=== PATIENT | male | born 1965 | race Two or more races ===

== ENCOUNTER → 2017-05-13 | Outpatient (CLI) | payer OTHER ==
--- NOTE | 2017-05-13 12:55 | RADRPT ---
EXAM DATE/TIME: 05/13/2017 11:35 [facility] COMPARISON: No previous studies available for comparison. INDICATIONS : no known injury pain in the posterior part of shoulder MEDICAL HISTORY : None. SURGICAL HISTORY : None. ENCOUNTER: Initial ACUITY: 3 weeks PAIN SCORE: 10/10 LOCATION: Left Shoulder FINDINGS: Multiple view examination of the left shoulder demonstrates no evidence of fracture or dislocation. The glenohumeral and acromioclavicular joints are maintained. There is normal range of motion betwee n internal and external rotation. Bony mineralization is normal. CONCLUSION: Negative for fracture or dislocation. Follow up in 7-10 days is suggested if symptoms persist. John Tapia MD FACR on May 13, 2017 at 12:53 Board Certified Radiologist. This report was verified electronically.
--- NOTE | 2017-05-13 12:56 | RADRPT ---
EXAM DATE/TIME: 05/13/2017 11:44 [facility] COMPARISON: No previous studies available for comparison. INDICATIONS : No known injury pain in entire knee MEDICAL HISTORY : None. SURGICAL HISTORY : None. ENCOUNTER: Initial ACUITY: 4 - 6 months PAIN SCORE: 10/10 LOCATION: Left Knee FINDINGS: Four view examination of the left knee demonstrates no evidence of fracture or dislocation. Bony min eralization is normal. The articular surfaces are intact. The suprapatellar soft tissues have a nor mal configuration. CONCLUSION: Negative for fracture or dislocation. Follow up in 7-10 days is suggested if symptoms persist. John Tapia MD FACR on May 13, 2017 at 12:53 Board Certified Radiologist. This report was verified electronically.
== END ==
LOC: HRAD 10:36
PROVIDERS: ATTEND Family Medicine
DX: M25.562 Pain in left knee (principal); M25.512 Pain in left shoulder
CPT/HCPCS: 73030; 73564

== ENCOUNTER → 2017-05-28 | Outpatient (CLI) | payer OTHER ==
--- NOTE | 2017-05-28 10:22 | RADRPT ---
EXAM DATE/TIME: 05/28/2017 09:48 [facility] COMPARISON: No previous studies available for comparison. INDICATIONS : Abnormal liver function tests. MEDICAL HISTORY : Abnormal liver function tests. SURGICAL HISTORY : None. ENCOUNTER: Initial ACUITY: 1 day PAIN SCORE: 3/10 LOCATION: Bilateral upper quadrant MEASUREMENTS: LIVER: 15.1 cm length COMMON DUCT: 5 mm RIGHT KIDNEY: 11.4 x 4.9 x 5.8 cm SPLEEN: 12.6 cm length FINDINGS: Ultrasound of the upper abdomen demonstrates increased echogenicity of the liver compatible with fatt y infiltration or hepatocellular disease. The spleen is unremarkable. The right kidney is unremarkabl e. Sludge is identified within the gallbladder. The pancreas demonstrates no evidence of mass and the re is no dilatation of the pancreatic duct. CONCLUSION: 1. Echogenic liver compatible with fatty infiltration or hepatocellular disease. Marlon Hernandez MD on May 28, 2017 at 10:19 Board Certified Radiologist. This report was verified electronically.
== END ==
LOC: HRAD 09:11
PROVIDERS: ATTEND Family Medicine
DX: R79.89 Other specified abnormal findings of blood chemistry (principal)
CPT/HCPCS: 76705

== ENCOUNTER 2017-09-05 21:08 | Emergency (ER) | payer OTHER ==
[~2017-09-05] VITALS: Ht 167.6 cm; Wt 75.0 kg
[2017-09-05 21:09] VITALS: BP 119/74; PULSE 87; RESP 16; TEMP 99.2; O2SAT 98
[2017-09-05] MEDS ORDERED: IOHEXOL 350 MG/ML 10 ML VIAL (for RAD DIAG) IVCONTRAST ONE (21:09)
[2017-09-05] MEDS ORDERED: ONDANSETRON HCL 4 MG/2 ML VIAL IV PUSH ONE (22:00)
[2017-09-05] MEDS ORDERED: SODIUM CHLOR 0.9% 1000 ML INJ 1,000 ML IV ONE (22:00)
--- NOTE | 2017-09-05 22:11 | PD ---
HPI Chief Complaint: Fall Time Seen by Provider: 21:36 Travel History International Travel<30 days: No Contact w/Intl Traveler<30days: No Traveled to known affect area: No History of Present Illness HPI 52-year-old male presents to emergency department accompanied by family member for evaluation of a fall from a ladder 12 feet onto the pavement approximately 1:30 this afternoon at work. Patient states that he lost his balance falling back striking his right hip and right elbow and hand. He denies hitting his head. No neck or upper back pain. He does complain about some pain across his chest. He has some mild abdominal discomfort. Also complains of pain in the lower lumbar spine into the right hip. He denies any numbness, tingling or focal weakness. Pain is moderate PFSH Past Medical History Narrative Medical Chronic skin condition, right maxillary fracture Immunizations Current: Yes Tetanus Vaccination: > 5 Years Influenza Vaccination: No Past Surgical History Narrative Surgical ORIF right maxillary fracture Social History Alcohol Use: Yes (occ) Tobacco Use: Yes (occ) Substance Use: No Allergies-Medications (Allergen,Severity, Reaction): Coded Allergies: No Known Allergies (Unverified , 09/05/17) Reported Meds & Prescriptions Reported Meds & Active Scripts Active Flexeril (Cyclobenzaprine HCl) 10 Mg Tab 10 Mg PO TID Diclofenac Sodium DR (Diclofenac Sodium) 75 Mg Tabdr 75 Mg PO BID [place] (Hydrocodone-Acetaminophen) 5 Mg-325 Mg Tab 1 Tab PO Q4H PRN Review of Systems General / Constitutional: No: Fever Eyes: No: Visual changes HENT: No: Headaches, Neck Stiffness, Neck Pain Cardiovascular: No: Chest Pain or Discomfort Respiratory: No: Shortness of Breath Gastrointestinal: Positive: Abdominal Pain, No: Nausea, Vomiting Genitourinary: No: Dysuria, Hematuria Musculoskeletal: Positive: Myalgias, Arthralgias, Limited ROM, Pain Skin: Positive Rash, Positive Itching, Positive Lesions Neurologic: No: Weakness, Dizziness, Syncope, Focal Abnormalities, Headache, Paresthesia, Incontinence, Seizures Psychiatric: No: Depression Endocrine: No: Polydipsia Hematologic/Lymphatic: No: Easy Bruising Physical Exam Narrative GENERAL: Well-developed, well-nourished in no apparent distress. Nontoxic appearing. HEAD: Normocephalic, atraumatic. EYES: Pupils equal round and reactive. Extraocular motions intact. No scleral icterus. No injection or drainage. ENT: Nose clear. Throat without erythema, tonsillar hypertrophy or exudate. Uvula midline. Airway patent. NECK: Trachea midline. Supple, nontender, moves head freely. No central bony tenderness or spasm. CARDIOVASCULAR: Regular rate and rhythm without murmurs, gallops, or rubs. RESPIRATORY: Clear to auscultation. Breath sounds equal bilaterally. No wheezes , rales, or rhonchi. GASTROINTESTINAL: Abdomen soft, mild tenderness in the right upper quadrant as well as the right lower quadrant to deep palpation, nondistended. No hepato- splenomegaly, or palpable masses. No guarding. EXTREMITIES: Examination of the left upper extremity is unremarkable. Examination the right upper extremity reveals an abrasion and tenderness in the elbow, tenderness, swelling and ecchymosis to the volar palm and justen. He has some mild tenderness in the wrist but no focal tenderness. No snuffbox tenderness. No pain in the shoulder clavicle. The right lower extremity reveals pain in the right buttocks and SI joint region. No pain in the greater trochanter. No pain in the knee, ankle or foot. The left lower extremity is unremarkable. He has intact sensation with good distal pulses. BACK: Lower lumbar tenderness more so on the right. There is some soft tissue swelling. Without deformity. No flank tenderness. NEUROLOGICAL: Awake, alert and oriented x 3 .Cranial nerves grossly intact. Motor and sensory grossly within normal limits. Normal speech. Skin: Patient has abrasion over the right elbow. The patient is multiple plaques slight scaly lesions about the body consistent with what appears to be psoriasis. Data Data Last Documented VS Vital Signs Date Time Temp Pulse Resp B/P (MAP) Pulse Ox O2 Delivery O2 Flow Rate FiO2 09/05/17 21:09 99.2 87 16 119/74 (89) 98 Room Air Orders Orders Complete Blood Count With Diff (09/05/17 21:47) Comprehensive Metabolic Panel (09/05/17 21:47) Prothrombin Time / Inr (Pt) (09/05/17 21:47) Act Partial Throm Time (Ptt) (09/05/17 21:47) Lipase (09/05/17 21:47) Ua Includes Microscopic (09/05/17 21:47) Chest, Single Ap (09/05/17 21:47) Ct Abd/Pel W Iv Contrast(Rout) (09/05/17 21:47) Pelvis, Ap Only (Routine) (09/05/17 21:47) Iv Access Insert/Monitor (09/05/17 21:47) Ecg Monitoring (09/05/17 21:47) Oximetry (09/05/17 21:47) Sodium Chlor 0.9% 1000 Ml Inj (Ns 1000 M (09/05/17 22:00) Ondansetron Inj (Zofran Inj) (09/05/17 22:00) Fentanyl Inj (Fentanyl Inj) (09/05/17 22:00) Elbow, Complete (4 Vws) (09/05/17 21:47) Hand, Complete ([id number]) (09/05/17 21:47) Ct Lumb Spine W Iv Contrast (09/05/17 21:47) Iohexol 350 Inj (Omnipaque 350 Inj) (09/05/17 21:09) Acetamin-Hydrocod 325-5 Mg ([place] 5-325 (09/06/17 01:30) Naproxen (Naprosyn) (09/06/17 01:30) Labs Laboratory Tests Test 09/05/17 22:45 09/05/17 22:50 Urine Color YELLOW Urine Turbidity CLEAR Urine pH 6.5 Urine Specific [place] 1.023 Urine Protein NEG mg/dL Urine Glucose (UA) 1000 mg/dL Urine Ketones NEG mg/dL Urine Occult Blood NEG Urine Nitrite NEG Urine Bilirubin NEG Urine Urobilinogen LESS THAN 2.0 MG/DL Urine Leukocyte Esterase NEG Urine RBC 1 /hpf Urine WBC 2 /hpf Urine Mucus FEW /lpf White Blood Count 10.3 TH/MM3 Red Blood Count 4.70 MIL/MM3 Hemoglobin 14.3 GM/DL Hematocrit 42.4 % Mean Corpuscular Volume 90.1 FL Mean Corpuscular Hemoglobin 30.5 PG Mean Corpuscular Hemoglobin Concent 33.8 % Red Cell Distribution Width 13.1 % Platelet Count 123 TH/MM3 Mean Platelet Volume 9.9 FL Neutrophils (%) (Auto) 64.5 % Lymphocytes (%) (Auto) 17.3 % Monocytes (%) (Auto) 16.4 % Eosinophils (%) (Auto) 1.2 % Basophils (%) (Auto) 0.6 % Neutrophils # (Auto) 6.7 TH/MM3 Lymphocytes # (Auto) 1.8 TH/MM3 Monocytes # (Auto) 1.7 TH/MM3 Eosinophils # (Auto) 0.1 TH/MM3 Basophils # (Auto) 0.1 TH/MM3 CBC Comment DIFF FINAL Differential Comment Prothrombin Time 11.3 SEC Prothromb Time International Ratio 1.1 RATIO Activated Partial Thromboplast Time 25.0 SEC Blood Urea Nitrogen 12 MG/DL Creatinine 0.83 MG/DL Random Glucose 145 MG/DL Total Protein 7.5 GM/DL Albumin 3.6 GM/DL Calcium Level 8.8 MG/DL Alkaline Phosphatase 94 U/L Aspartate Amino Transf (AST/SGOT) 96 U/L Alanine Aminotransferase (ALT/SGPT) 117 U/L Total Bilirubin 0.5 MG/DL Sodium Level 141 MEQ/L Potassium Level 3.8 MEQ/L Chloride Level 105 MEQ/L Carbon Dioxide Level 30.7 MEQ/L Anion Gap 5 MEQ/L Estimat Glomerular Filtration Rate 97 ML/MIN Lipase 162 U/L [facility] Medical Decision Making Medical Screen Exam Complete: Yes Emergency Medical Condition: Yes Medical Record Reviewed: Yes Interpretation(s) CT lumbar spine: Negative for acute fracture. CT abdomen and pelvis: Negative for acute and intra-abdominal process/trauma incidental what appears to be a hemangioma noted in the liver. Last 24 hours Impressions Pelvis X-Ray 09/05/172146 Signed Impressions: Service Date/Time: Tuesday, September 05, 2017 22:10 - CONCLUSION: No acute fracture. Bib Donovan MD Hand X-Ray 09/05/172146 Signed Impressions: Service Date/Time: Tuesday, September 05, 2017 22:18 - CONCLUSION: No acute fracture. Bib Donoavn MD Elbow X-Ray 09/05/172146 Signed Impressions: Service Date/Time: Tuesday, September 05, 2017 22:13 - CONCLUSION: No acute fracture. Bib Donovan MD Chest X-Ray 09/05/172146 Signed Impressions: Service Date/Time: Tuesday, September 05, 2017 22:12 - CONCLUSION: No acute disease. Bib Donovan MD Laboratory Tests Test 09/05/17 22:45 09/05/17 22:50 Urine Color YELLOW Urine Turbidity CLEAR Urine pH 6.5 Urine Specific [place] 1.023 Urine Protein NEG mg/dL Urine Glucose (UA) 1000 mg/dL Urine Ketones NEG mg/dL Urine Occult Blood NEG Urine Nitrite NEG Urine Bilirubin NEG Urine Urobilinogen LESS THAN 2.0 MG/DL Urine Leukocyte Esterase NEG Urine RBC 1 /hpf Urine WBC 2 /hpf Urine Mucus FEW /lpf White Blood Count 10.3 TH/MM3 Red Blood Count 4.70 MIL/MM3 Hemoglobin 14.3 GM/DL Hematocrit 42.4 % Mean Corpuscular Volume 90.1 FL Mean Corpuscular Hemoglobin 30.5 PG Mean Corpuscular Hemoglobin Concent 33.8 % Red Cell Distribution Width 13.1 % Platelet Count 123 TH/MM3 Mean Platelet Volume 9.9 FL Neutrophils (%) (Auto) 64.5 % Lymphocytes (%) (Auto) 17.3 % Monocytes (%) (Auto) 16.4 % Eosinophils (%) (Auto) 1.2 % Basophils (%) (Auto) 0.6 % Neutrophils # (Auto) 6.7 TH/MM3 Lymphocytes # (Auto) 1.8 TH/MM3 Monocytes # (Auto) 1.7 TH/MM3 Eosinophils # (Auto) 0.1 TH/MM3 Basophils # (Auto) 0.1 TH/MM3 CBC Comment DIFF FINAL Differential Comment Prothrombin Time 11.3 SEC Prothromb Time International Ratio 1.1 RATIO Activated Partial Thromboplast Time 25.0 SEC Blood Urea Nitrogen 12 MG/DL Creatinine 0.83 MG/DL Random Glucose 145 MG/DL Total Protein 7.5 GM/DL Albumin 3.6 GM/DL Calcium Level 8.8 MG/DL Alkaline Phosphatase 94 U/L Aspartate Amino Transf (AST/SGOT) 96 U/L Alanine Aminotransferase (ALT/SGPT) 117 U/L Total Bilirubin 0.5 MG/DL Sodium Level 141 MEQ/L Potassium Level 3.8 MEQ/L Chloride Level 105 MEQ/L Carbon Dioxide Level 30.7 MEQ/L Anion Gap 5 MEQ/L Estimat Glomerular Filtration Rate 97 ML/MIN Lipase 162 U/L Differential Diagnosis MDM: High Differential diagnoses: Fracture, sprain, strain, dislocation, contusion, neurovascular injury Narrative Course IV access is obtained. Patient given a liter bolus of normal saline, Zofran 4 mg IV, and fentanyl [address] scan of the abdomen for trauma, x-rays of the chest, abdomen, right elbow, and right hand. Routine laboratory tests including CBC, chemistry, lipase, urine, PT PTT,. Patient laboratory testing as well as his CAT scan and x-rays of and negative. Patient's given additional normal 5 mg by mouth at time of discharge and Motrin This is fall, right elbow contusion, right hand contusion, right hip contusion, right flank contusion Diagnosis Primary Impression: fall Additional Impressions: right elbow contusion right hand contusion right hip contusion right flank contusion Patient Instructions: Narcotic given in the ED, General Instructions Departure Forms: Tests/Procedures, Work Release Special Instructions: No work 5 days. Additional Instructions: Rest. Ice for the next 3 days followed by heat . NORCO, Flexeril and Voltaren. Follow-up with a primary care doctor in 2-3 days. Return to the ER for emergencies. Med/Other Pt SpecificInfo: Prescription(s) given Scripts Cyclobenzaprine (Flexeril) 10 Mg Tab 10 MG PO TID for Muscle Spasm, #30 TAB 0 Refills Prov: Carlos Darby MD 09/06/[address] (Diclofenac Sodium DR) 75 Mg Tabdr 75 MG PO BID, #30 TAB 0 Refills Prov: Carlos Darby MD 09/06/17 Hydrocodone-Acetaminophen ([place]) 5 Mg-325 Mg Tab 1 TAB PO Q4H Y for PAIN, #20 TAB 0 Refills Prov: Carlos Darby MD 09/06/17 Disposition: 01 DISCHARGE HOME Condition: Stable [place] Rico Sep 05, 2017 22:11
--- NOTE | 2017-09-05 22:36 | RADRPT ---
EXAM DATE/TIME: 09/05/2017 22:12 [facility] COMPARISON: No previous studies available for comparison. INDICATIONS : Pain due to fall. MEDICAL HISTORY : None. SURGICAL HISTORY : Mandible surgery. ENCOUNTER: Initial ACUITY: 1 day PAIN SCORE: 10/10 LOCATION: Bilateral chest FINDINGS: A single view of the chest demonstrates the lungs to be symmetrically aerated without evidence of mas s, infiltrate or effusion. The cardiomediastinal contours are unremarkable. Osseous structures are intact. CONCLUSION: No acute disease. Bib Donovan MD on September 05, 2017 at 22:34 Board Certified Radiologist. This report was verified electronically.
--- NOTE | 2017-09-05 22:37 | RADRPT ---
EXAM DATE/TIME: 09/05/2017 22:10 [facility] COMPARISON: No previous studies available for comparison. INDICATIONS : Pain due to fall. MEDICAL HISTORY : None. SURGICAL HISTORY : Mandible ENCOUNTER: Initial ACUITY: 1 day PAIN SCORE: 10/10 LOCATION: pelvis, posterior. FINDINGS: A single frontal view of the pelvis demonstrates no evidence of fracture. The bony pelvic ring is in tact. Bony mineralization is normal. The soft tissues are intact. CONCLUSION: No acute fracture. Bib Donovan MD on September 05, 2017 at 22:35 Board Certified Radiologist. This report was verified electronically.
--- NOTE | 2017-09-05 22:38 | RADRPT ---
EXAM DATE/TIME: 09/05/2017 22:13 [facility] COMPARISON: No previous studies available for comparison. INDICATIONS : Pain due to fall. MEDICAL HISTORY : None. SURGICAL HISTORY : Mandible surgery. ENCOUNTER: Initial ACUITY: 1 day PAIN SCORE: 10/10 LOCATION: Right elbow, posterior FINDINGS: Multiple view examination of the right elbow demonstrates no soft tissue swelling, joint effusion, or fracture. The osseous structures are in normal alignment. Bony mineralization is normal. CONCLUSION: No acute fracture. Bib Donovan MD on September 05, 2017 at 22:36 Board Certified Radiologist. This report was verified electronically.
--- NOTE | 2017-09-05 22:38 | RADRPT ---
EXAM DATE/TIME: 09/05/2017 22:18 [facility] COMPARISON: No previous studies available for comparison. INDICATIONS : Pain due to fall. MEDICAL HISTORY : None. SURGICAL HISTORY : Mandible surgery. ENCOUNTER: Initial ACUITY: 1 day PAIN SCORE: 10/10 LOCATION: Right upper extremity hand FINDINGS: Three view examination of the right hand demonstrates no soft tissue swelling, dislocation, or fractu re. The carpal bones appear intact. The interphalangeal and metacarpophalangeal joints are intact. Bony mineralization is normal. CONCLUSION: No acute fracture. Bib Donovan MD on September 05, 2017 at 22:35 Board Certified Radiologist. This report was verified electronically.
[2017-09-05 23:37] LABS: BILIRUBIN, URINE NEG (NEG); BLOOD, URINE NEG (NEG); GLUCOSE,URINE 1000 mg/dL (NEG); KETONE, URINE NEG (NEG); MUCUS URINE FEW /lpf (OCC); NITRITE,URINE NEG (NEG); PH, URINE 6.5 (5.0-8.5); URINE COLOR YELLOW (YELLW/STRAW); URINE LEUKOCYTE ESTERASE NEG (NEG)
[2017-09-05 23:38] LABS: AUTOMATED NEUTROPHIL # 6.7 TH/MM3 (1.8-7.7); BASOPHIL # 0.1 TH/MM3 (0-0.2); BASOPHIL % 0.6 % (0.0-2.0); EOSINOPHIL # 0.1 TH/MM3 (0-0.4); EOSINOPHIL % 1.2 % (0.0-4.0); HEMATOCRIT 42.4 % (39.0-51.0); HEMOGLOBIN 14.3 GM/DL (13.0-17.0); LYMPH % 17.3 % (9.0-44.0); LYMPHOCYTE # 1.8 TH/MM3 (1.0-4.8); MEAN CELL VOLUME 90.1 FL (80.0-100.0); MEAN CORPUSCULAR HEMOGLOBIN 30.5 PG (27.0-34.0); MEAN CORPUSCULAR HGB CONC 33.8 % (32.0-36.0); MEAN PLATELET VOLUME 9.9 FL (7.0-11.0); MONO % 16.4 % (0.0-8.0); MONOCYTE # 1.7 TH/MM3 (0-0.9); NEUT % 64.5 % (16.0-70.0); PLATELET COUNT 123 TH/MM3 (150-450); RED CELL DISTRIBUTION WIDTH 13.1 % (11.6-17.2); WHITE BLOOD COUNT 10.3 TH/MM3 (4.0-11.0)
[2017-09-05 23:50] LABS: INTERNATIONAL NORMALIZED RATIO 1.1 RATIO; PROTHROMBIN TIME - PATIENT 11.3 SEC (9.8-11.6)
[2017-09-05 23:52] LABS: ALBUMIN 3.6 GM/DL (3.4-5.0); ALT (GPT) 117 U/L (12-78); AST (GOT) 96 U/L (15-37); BICARBONATE 30.7 MEQ/L (21.0-32.0); BLOOD UREA NITROGEN 12 MG/DL (7-18); CALCIUM 8.8 MG/DL (8.5-10.1); CHLORIDE 105 MEQ/L (98-107); CREATININE 0.83 MG/DL (0.60-1.30); GLOMERULAR FILTRATION RATE 97 ML/MIN (>89); GLUCOSE,RANDOM 145 MG/DL (74-106); LIPASE 162 U/L (73-393); SODIUM (NA) 141 MEQ/L (136-145)
[2017-09-05 23:54] LABS: ALKALINE PHOSPHATASE 94 U/L (45-117); TOTAL BILIRUBIN ADULT 0.5 MG/DL (0.2-1.0); TOTAL PROTEIN 7.5 GM/DL (6.4-8.2)
--- NOTE | 2017-09-06 01:07 | RADRPT ---
EXAM DATE/TIME: 09/06/2017 00:39 [facility] COMPARISON: No previous studies available for comparison. INDICATIONS : Fell of ladder from 12 feet. IV CONTRAST: 95 cc Omnipaque 350 (iohexol) IV ; Cumulative dose for multiple exams. ORAL CONTRAST: No oral contrast ingested. RADIATION DOSE: 8.64 CTDIvol (mGy) MEDICAL HISTORY : None SURGICAL HISTORY : None. ENCOUNTER: Initial ACUITY: 1 day PAIN SCALE: 8/10 LOCATION: Right abdomen TECHNIQUE: Volumetric scanning of the abdomen and pelvis was performed. Using automated exposure control and ad justment of the mA and/or kV according to patient size, radiation dose was kept as low as reasonably achievable to obtain optimal diagnostic quality images. DICOM format image data is available electro nically for review and comparison. FINDINGS: LOWER LUNGS: The visualized lower lungs are clear. LIVER: Small hypodense subcentimeter lesion in segment 2 of liver. Liver otherwise appears unremarkable with out evidence for acute traumatic injury. Gallbladder is unremarkable. SPLEEN: Normal size without lesion. PANCREAS: Within normal limits. KIDNEYS: Normal in size and shape. There is no mass, stone or hydronephrosis. ADRENAL GLANDS: Within normal limits. VASCULAR: There is no aortic aneurysm. BOWEL/MESENTERY: The stomach, small bowel, and colon demonstrate no acute abnormality. There is no free intraperitone al air or fluid. ABDOMINAL WALL: Within normal limits. RETROPERITONEUM: There is no lymphadenopathy. BLADDER: No wall thickening or mass. REPRODUCTIVE: Within normal limits. INGUINAL: There is no lymphadenopathy or hernia. MUSCULOSKELETAL: Osseous structures appear intact without evidence for acute bony fracture. CONCLUSION: 1. No acute traumatic injury in the abdomen or pelvis. 2. Small subcentimeter hypodense lesion in segment 2 of the liver which is too small to characterize. Statistically, these lesions reflect hemangioma or cyst. Harjinder Galloway MD on September 06, 2017 at 1:03 Board Certified Radiologist. This report was verified electronically.
--- NOTE | 2017-09-06 01:10 | RADRPT ---
EXAM DATE/TIME: 09/06/2017 00:39 [facility] COMPARISON: No previous studies available for comparison. INDICATIONS : Fell of ladder from 12 feet. IV CONTRAST: 95 cc Omnipaque 350 (iohexol) IV ; Cumulative dose for multiple exams. RADIATION DOSE: ; Reconstructed from previous dataset, no dose MEDICAL HISTORY : None SURGICAL HISTORY : None. ENCOUNTER: Initial ACUITY: 1 day PAIN SCALE: 8/10 LOCATION: low lumbar TECHNIQUE: Volumetric scanning of the lumbar spine was performed. Multiplanar reconstructions in the sagittal, coronal and oblique axial planes were performed. Using automated exposure control and adjustment of the mA and/or kV according to patient size, radiation dose was kept as low as reasonably achievable t o obtain optimal diagnostic quality images. DICOM format image data is available electronically for review and comparison. FINDINGS: Vertebral body heights are intact without evidence for acute bony fracture or focal bony destruction. Sagittal alignment is maintained. Bony central canal is intact. Visualized paraspinal soft tissues a re unremarkable. L1-L2: The disc, uncovertebral joints, central canal, foramina, and facets are normal. L2-L3: The disc, uncovertebral joints, central canal, foramina, and facets are normal. L3-L4: Mild diffuse disc bulge without significant central canal stenosis. Patent bony neural foramina. L5-S1: CONCLUSION: 1. No acute fracture or subluxation. 2. Mild degenerative spondylosis of the lower lumbar spine. Harjinder Galloway MD on September 06, 2017 at 1:06 Board Certified Radiologist. This report was verified electronically.
[2017-09-06] MEDS ORDERED: CYCL10TA PO (01:20)
[2017-09-06] MEDS ORDERED: NORC5TAB PO (01:20)
[2017-09-06] MEDS ORDERED: DICL75TA PO (01:20)
[2017-09-06] MEDS ORDERED: ACETAMINOPHEN/HYDROcodone 325 MG/5 MG TAB PO ONE (01:30)
[2017-09-06] MEDS ORDERED: NAPROXEN 500 MG TAB PO ONE (01:30)
== END 2017-09-06 01:39 | disposition home or self-care (01) ==
LOC: NEPD 21:08
DX: S50.01XA Contusion of right elbow, initial encounter (principal); S60.221A Contusion of right hand, initial encounter; S70.01XA Contusion of right hip, initial encounter; S30.1XXA Contusion of abdominal wall, initial encounter; Z72.0 Tobacco use; W11.XXXA Fall on and from ladder, initial encounter; Y99.0 Civilian activity done for income or pay
CPT/HCPCS: 71045; 72132; 72170; 73080; 73130; 74177; 80053; 81001; 83690; 85025; 85610; 85730; 96361; 96374; 96375; 99285; J2405; J3010; J7030; Q9967